=== PATIENT | female | born 2000 | race Caucasian/White ===

== ENCOUNTER 2022-02-23 18:23 | Emergency (ER) | payer OTHER ==
[~2022-02-23] VITALS: Ht 160 cm; Wt 76.8 kg
[2022-02-23] MEDS ORDERED: BUPR15TA PO (18:34)
[2022-02-23] MEDS ORDERED: MIRT1TAB15 PO (18:34)
[2022-02-23] MEDS ORDERED: HYDR-643 PO (18:34)
[2022-02-23 20:10] VITALS: BP 134/81
== END 2022-02-23 21:18 | disposition home or self-care (01) ==
LOC: M ED 18:23
DX: F32.A Depression, unspecified (principal); F43.10 Post-traumatic stress disorder, unspecified; F41.9 Anxiety disorder, unspecified; Z53.21 Procedure and treatment not carried out due to patient leaving prior to being seen by health care provider; Z88.0 Allergy status to penicillin; Z88.1 Allergy status to other antibiotic agents; Z88.2 Allergy status to sulfonamides; Z91.018 Allergy to other foods

== ENCOUNTER → 2022-04-14 | Outpatient (REF) | payer OTHER ==
[~2022-04-14] MED LIST: BUPR15TA PO; HYDR-643 PO; MIRT1TAB15 PO
== END ==
LOC: M LAB REF 16:50
PROVIDERS: ATTEND Nurse Practitioner Family
DX: R30.0 Dysuria (principal)

== ENCOUNTER → 2022-06-09 | Outpatient (REF) | payer OTHER | LOC: M LAB REF 16:57 | PROVIDERS: ATTEND Nurse Practitioner Family | DX: J02.9 Acute pharyngitis, unspecified (principal) ==

== ENCOUNTER 2023-03-05 05:19 | Emergency (ER) | payer OTHER ==
[~2023-03-05] VITALS: Ht 160 cm; Wt 68.0 kg
[2023-03-05] MEDS ORDERED: ONDA4TAB6 (05:24)
[2023-03-05] MEDS ORDERED: AMIT10TA7 (05:24)
[2023-03-05] MEDS ORDERED: GUAI100S4 (05:24)
[2023-03-05] MEDS ORDERED: NS 1,000 ML IV ONE (08:05)
[2023-03-05] MEDS ORDERED: ACETAMINOPHEN 500 MG TAB PO ONE (08:05)
[2023-03-05] MEDS ORDERED: KETOROLAC 30 MG/ML 1ML VIAL IV ONE (08:05)
[2023-03-05] MEDS ORDERED: AZIT-12 PO (09:58)
[2023-03-05 09:59] VITALS: BP 121/62; TEMP 98.3; O2SAT 98
== END 2023-03-05 10:27 | disposition home or self-care (01) ==
LOC: M ED 05:19
DX: J20.9 Acute bronchitis, unspecified (principal); F41.9 Anxiety disorder, unspecified; F32.A Depression, unspecified; Z88.0 Allergy status to penicillin; Z88.2 Allergy status to sulfonamides; Z91.018 Allergy to other foods; Z91.048 Other nonmedicinal substance allergy status; Z79.2 Long term (current) use of antibiotics; Z79.83 Long term (current) use of bisphosphonates; Z79.899 Other long term (current) drug therapy
CPT/HCPCS: 71046; 84702; 87486; 87581; 87633; 87798; 96361; 96374; 99284; J1885

== ENCOUNTER → 2024-11-16 | Outpatient (REF) | payer OTHER ==
[~2024-11-16] MED LIST changes: +AMIT10TA11; +AZIT-12 PO; +GUAI100S4; +ONDA-282
== END ==
LOC: M LAB REF 17:20
PROVIDERS: ATTEND Nurse Practitioner Adult Health
DX: R30.0 Dysuria (principal); N89.8 Other specified noninflammatory disorders of vagina

== ENCOUNTER → 2025-02-20 | Outpatient (REF) | payer OTHER | LOC: M LAB REF 17:00 | PROVIDERS: ATTEND Family Medicine | DX: J02.9 Acute pharyngitis, unspecified (principal) ==